=== PATIENT | female | born 1940 | race Caucasian/White ===

== ENCOUNTER → 2024-04-13 07:01 | Outpatient (REF) | payer MEDICARE, OTHER, SELFPAY ==
[2024-04-13 09:07] LABS: % Basophils 0.8 % (0-2); % Immature Granulocytes 0.3 % (0-0.5); % Lymphocytes 29.8 % (20.5-51.1); % Monocytes 6.5 % (1.7-9.3); % Neutrophils 57.6 % (42.2-75.2); Absolute Basophils 0.1 10^3/uL (0-0.2); Absolute Eosinophils 0.4 10^3/uL (0-0.7); Absolute Lymphocytes 2.3 10^3/uL (1.2-3.4); Absolute Monocytes 0.5 10^3/uL (0.1-0.6); Absolute Neutrophils 4.5 10^3/uL (1.4-6.5); Hematocrit 35.7 % (37.0-47.0); Hemoglobin 11.8 g/dL (12.0-16.0); Mean Corp Hgb Conc. 33.1 g/dL (33.0-37.0); Mean Corpuscular Hgb 32.1 pg (27.0-31.0); Mean Platelet Volume 10.2 fL (7.4-10.4); Nucleated Red Blood Cells % 0 %; Platelet Count 422 10^3/uL (130-400); Red Blood Cell Count 3.68 10^6/uL (4.20-5.40); Red Cell Dist. Width 16.7 % (11.5-14.5); White Blood Cell Count 7.8 10^3/uL (4.8-10.8)
[2024-04-13 09:11] LABS: ALT (SGPT) 35 U/L (0-35); AST (SGOT) 37 U/L (14-36); Alkaline Phosphatase 67 U/L (38-126); Blood Urea Nitrogen 44 mg/dl (7-17); Calcium 9.6 mg/dl (8.4-10.2); Carbon Dioxide 30 mmol/L (22-30); Chloride 101 mmol/L (98-107); Glucose 129 mg/dl (70-99); HDL Cholesterol 95 mg/dl; LDL Cholesterol, Calculated 54 mg/dl; Potassium 4.1 mmol/L (3.5-5.1); Sodium 138 mmol/L (135-145); Total Bilirubin 0.6 mg/dl (0.2-1.3); Total Cholesterol 171 mg/dl (50-199); Total Protein 6.5 g/dl (6.3-8.2); Triglyceride 112 mg/dl (10-149); Uric Acid 4.8 mg/dl (2.5-6.2); Very Low Density Lipoprotein 22 mg/dl (0-30); eGFR > 60.00
[2024-04-13 09:16] LABS: C-Reactive Protein < 5.00 mg/L (0.0-10.00)
== END ==
LOC: HWLAB 07:01
PROVIDERS: ATTENDING PHYSICIAN Internal Medicine Rheumatology; FAMILY PHYSICIAN Internal Medicine
DX: D75.839 Thrombocytosis, unspecified (principal); E79.0 Hyperuricemia without signs of inflammatory arthritis and tophaceous disease; E83.42 Hypomagnesemia; M06.4 Inflammatory polyarthropathy; M10.9 Gout, unspecified; M11.20 Other chondrocalcinosis, unspecified site; M81.0 Age-related osteoporosis without current pathological fracture; N25.81 Secondary hyperparathyroidism of renal origin; R94.5 Abnormal results of liver function studies; Z79.899 Other long term (current) drug therapy; E78.5 Hyperlipidemia, unspecified
CPT/HCPCS: 36415; 80053; 80061; 84550; 85025; 86140

== ENCOUNTER → 2024-08-09 07:07 | Outpatient (REF) | payer MEDICARE, OTHER, SELFPAY ==
[2024-08-09 10:14] LABS: ALT (SGPT) 33 U/L (0-35); AST (SGOT) 37 U/L (14-36); Albumin 4.4 g/dl (3.5-5.0); Alkaline Phosphatase 59 U/L (38-126); Blood Urea Nitrogen 57 mg/dl (7-17); Calcium 9.8 mg/dl (8.4-10.2); Carbon Dioxide 31 mmol/L (22-30); Chloride 100 mmol/L (98-107); Glucose 125 mg/dl (70-99); Magnesium 1.9 mg/dl (1.6-2.3); Potassium 4.3 mmol/L (3.5-5.1); Sodium 142 mmol/L (135-145); Total Bilirubin 0.6 mg/dl (0.2-1.3); Total Protein 6.5 g/dl (6.3-8.2); eGFR 56.25
[2024-08-09 10:46] LABS: Glycohemoglobin (HgbA1c) 6.4 % (4.0-5.6)
[2024-08-09 10:47] LABS: TSH 1.39 uIU/ml (0.47-4.68)
== END ==
LOC: HWLAB 07:07
PROVIDERS: ATTENDING PHYSICIAN Internal Medicine Endocrinology, Diabetes & Metabolism; FAMILY PHYSICIAN Internal Medicine
DX: R73.03 Prediabetes (principal); E83.42 Hypomagnesemia
CPT/HCPCS: 36415; 80053; 83036; 83735; 84443

== ENCOUNTER → 2024-09-20 10:54 | Outpatient (REF) | payer MEDICARE, OTHER, SELFPAY | LOC: HWLAB 10:54 | PROVIDERS: ATTENDING PHYSICIAN Internal Medicine | DX: B00.52 Herpesviral keratitis (principal) | CPT/HCPCS: 36415; 86787 ==

== ENCOUNTER → 2025-01-11 07:09 | Outpatient (REF) | payer MEDICARE, OTHER, SELFPAY ==
[2025-01-11 10:03] LABS: % Basophils 0.7 % (0-2); % Eosinophils 5.1 % (0-6); % Immature Granulocytes 0.2 % (0-0.5); % Lymphocytes 28.5 % (20.5-51.1); % Monocytes 7.1 % (1.7-9.3); % Neutrophils 58.4 % (42.2-75.2); Absolute Basophils 0.1 10^3/uL (0-0.2); Absolute Eosinophils 0.4 10^3/uL (0-0.7); Absolute Lymphocytes 2.4 10^3/uL (1.2-3.4); Absolute Monocytes 0.6 10^3/uL (0.1-0.6); Hemoglobin 11.9 g/dL (12.0-16.0); Mean Corp Hgb Conc. 33.1 g/dL (33.0-37.0); Mean Corpuscular Volume 102.9 fL (81.0-99.0); Mean Platelet Volume 10.1 fL (7.4-10.4); Nucleated Red Blood Cells % 0 %; Platelet Count 418 10^3/uL (130-400); White Blood Cell Count 8.6 10^3/uL (4.8-10.8)
[2025-01-11 10:07] LABS: Carbon Dioxide 31 mmol/L (22-30)
[2025-01-11 10:08] LABS: C-Reactive Protein < 5.00 mg/L (0.0-10.00)
[2025-01-11 10:19] LABS: Alkaline Phosphatase 72 U/L (38-126); Blood Urea Nitrogen 42 mg/dl (7-17); Calcium 9.5 mg/dl (8.4-10.2); Chloride 102 mmol/L (98-107); Total Cholesterol 176 mg/dl (50-199); Total Protein 6.3 g/dl (6.3-8.2); Triglyceride 109 mg/dl (10-149); Very Low Density Lipoprotein 21 mg/dl (0-30); eGFR > 60.00
[2025-01-11 10:27] LABS: Vitamin D, 25-OH*** 74.1 ng/mL (30-80)
[2025-01-11 11:13] LABS: ALT (SGPT) 27 U/L (0-35); AST (SGOT) 28 U/L (14-36); Glucose 134 mg/dl (70-99); HDL Cholesterol 84 mg/dl; LDL Cholesterol, Calculated 71 mg/dl; Potassium 4.2 mmol/L (3.5-5.1); Sodium 139 mmol/L (135-145); Total Bilirubin 0.6 mg/dl (0.2-1.3); Uric Acid 4.4 mg/dl (2.5-6.2)
[2025-01-11 11:25] LABS: Microalbumin/creatinine Ratio 25.3 mg/g
[2025-01-11 12:45] LABS: Glycohemoglobin (HgbA1c) 6.6 % (4.0-5.6)
== END ==
LOC: HWLAB 07:09
PROVIDERS: ATTENDING PHYSICIAN Internal Medicine Rheumatology; FAMILY PHYSICIAN Internal Medicine
DX: E78.5 Hyperlipidemia, unspecified (principal); E11.69 Type 2 diabetes mellitus with other specified complication; D64.9 Anemia, unspecified; Z79.899 Other long term (current) drug therapy
CPT/HCPCS: 36415; 80053; 80061; 82043; 82306; 82570; 83036; 84550; 85025; 86140

== ENCOUNTER → 2025-08-06 07:06 | Outpatient (REF) | payer MEDICARE, OTHER, SELFPAY ==
[2025-08-06 09:39] LABS: Hematocrit 34.8 % (37.0-47.0); Hemoglobin 11.3 g/dL (12.0-16.0); Mean Corp Hgb Conc. 32.5 g/dL (33.0-37.0); Mean Corpuscular Volume 102.4 fL (81.0-99.0); Nucleated Red Blood Cells % 0 %; Platelet Count 424 10^3/uL (130-400); Red Cell Dist. Width 14.6 % (11.5-14.5)
[2025-08-06 10:37] LABS: Glycohemoglobin (HgbA1c) 6.5 % (4.0-5.6)
[2025-08-06 15:01] LABS: C-Reactive Protein < 5.00 mg/L (0.0-10.00)
[2025-08-06 15:31] LABS: TSH 1.52 uIU/ml (0.47-4.68)
[2025-08-06 15:50] LABS: ALT (SGPT) 25 U/L (0-35); AST (SGOT) 24 U/L (14-36); Albumin 4.2 g/dl (3.5-5.0); Alkaline Phosphatase 45 U/L (38-126); Blood Urea Nitrogen 45 mg/dl (7-17); Calcium 9.9 mg/dl (8.4-10.2); Carbon Dioxide 30 mmol/L (22-30); Chloride 103 mmol/L (98-107); Glucose 128 mg/dl (70-99); HDL Cholesterol 83 mg/dl; LDL Cholesterol, Calculated 80 mg/dl; Magnesium 1.4 mg/dl (1.6-2.3); Potassium 4.0 mmol/L (3.5-5.1); Sodium 139 mmol/L (135-145); Total Protein 6.7 g/dl (6.3-8.2); Uric Acid 4.8 mg/dl (2.5-6.2); Very Low Density Lipoprotein 20 mg/dl (0-30); eGFR 55.90
== END ==
LOC: HWLAB 07:06
PROVIDERS: ATTENDING PHYSICIAN Internal Medicine Rheumatology; FAMILY PHYSICIAN Internal Medicine; REFERRING PHYSICIAN Internal Medicine Endocrinology, Diabetes & Metabolism
DX: E83.42 Hypomagnesemia (principal); E78.5 Hyperlipidemia, unspecified; D75.839 Thrombocytosis, unspecified; E55.9 Vitamin D deficiency, unspecified; E79.0 Hyperuricemia without signs of inflammatory arthritis and tophaceous disease; M06.4 Inflammatory polyarthropathy; M10.9 Gout, unspecified; M11.20 Other chondrocalcinosis, unspecified site; M81.0 Age-related osteoporosis without current pathological fracture; N25.81 Secondary hyperparathyroidism of renal origin; R71.8 Other abnormality of red blood cells; R94.5 Abnormal results of liver function studies; Z79.899 Other long term (current) drug therapy
CPT/HCPCS: 36415; 80053; 80061; 83036; 83735; 84443; 84550; 85025; 86140

== ENCOUNTER → 2025-09-11 10:47 | Outpatient (REF) | payer MEDICARE, OTHER, SELFPAY ==
[2025-09-11 12:37] LABS: Magnesium 1.8 mg/dl (1.6-2.3)
== END ==
LOC: HWLAB 10:47
PROVIDERS: ATTENDING PHYSICIAN Internal Medicine Endocrinology, Diabetes & Metabolism; FAMILY PHYSICIAN Internal Medicine
DX: E83.42 Hypomagnesemia (principal)
CPT/HCPCS: 36415; 83735